=== PATIENT | female | born 1975 | race Two or more races ===

== ENCOUNTER 2019-02-11 13:17 | Emergency (ER) | payer SELFPAY ==
[~2019-02-11] VITALS: Ht 165.1 cm; Wt 89.8 kg
[2019-02-11 13:35] VITALS: BP 152/102
[2019-02-11] MEDS ORDERED: ACETAMINOPHEN 500 MG TAB PO ONE (15:15)
== END 2019-02-11 16:07 | disposition home or self-care (01) ==
LOC: ER 13:17 → EDBD 13:17 → ER 16:07
DX: S00.83XA Contusion of other part of head, initial encounter (principal); Y08.89XA Assault by other specified means, initial encounter; Y93.89 Activity, other specified; Y99.8 Other external cause status; Y92.89 Other specified places as the place of occurrence of the external cause
CPT/HCPCS: 70450; 81025